=== PATIENT | female | born 1985 | race Caucasian/White ===

== ENCOUNTER 2019-09-11 16:02 | Emergency (ER) | payer MEDICARE, OTHER, SELFPAY ==
[2019-09-11 16:15] VITALS: BP 143/105; PULSE 87; RESP 18; TEMP 37.1; O2SAT 100
--- NOTE | 2019-09-11 16:30 | W.ED.ABDPA2 ---
HPI - Abdominal Pain General: Chief Complaint: Abdominal Pain Stated Complaint: Abd pain Time Seen by Provider: 09/11/19 16:23 Source: patient Mode of arrival: ambulatory Limitations: no limitations History of Present Illness: HPI narrative: Patient comes in today with complaints of lower abdominal pain radiating into her back. Patient reports similar pain about 1 month ago just before which was diagnosed with uterine fibroids at that time. Review of old records noted a KUB that showed no abnormality. And a transvaginal pelvic ultrasound that noted two intramural uterine fibroids with the larger one measuring 3.5 cm. This exam was done on August 18, 2019. Patient comes in today due to increase in pain in which she is unable to manage with tramadol at home. Patient appears well. Patient denies any fever or chills. Patient appears in moderate pain. Review of Systems General: Reports: 10 or more systems reviewed and unremarkable except in HPI and below GI: Reports: abdominal pain (pelvic and back pain) PFS ED PFSH: Statuses (acute, chronic, etc) shown below reflect problem list status as previously entered and may not be historically accurate Social History Smoking and tobacco status: former smoker Physical Exam Const: COMMON NORMALS: no apparent distress and oriented x3 GENERAL APPEARANCE: cooperative HENMT: COMMON NORMALS: normocephalic, external ears normal, EAC's normal, TM's normal bilaterally and external nose normal HEAD & SCALP: normal to inspection and normocephalic FACE & SINUS: normal facial exam NOSE: external nose normal GENERAL EAR: hearing not grossly impaired EXTERNAL EAR: Yes external ears normal EXTERNAL AUDITORY CANAL: EAC's normal TYMPANIC MEMBRANE: TM's normal bilaterally MOUTH: oral and palatal mucosa normal THROAT: posterior oropharynx normal Eye: COMMON NORMALS: PERRL and EOMs intact bilaterally PUPIL: Yes PERRL Neck/C-Spine: COMMON NORMALS: full ROM and no lymphadenopathy Lymph: LYMPHATIC: no lymphedema noted Chest: COMMONS NORMALS: inspection of chest normal and palpation of chest normal Resp: COMMON NORMALS: normal respiratory effort and clear to auscultation bilaterally AUSCULTATION: clear to auscultation bilaterally Cardio: COMMON NORMALS: regular rate and regular rhythm RATE: regular rate RHYTHM: regular rhythm GI: COMMON NORMALS: soft to palpation PALPATION: Yes soft and Yes tender (suprapubic) : COMMON NORMALS: Yes no CVA tenderness BLADDER/KIDNEY EXAM: Yes no CVA tenderness Back/Pelvis: COMMON NORMALS: no CVA tenderness and thoracic and lumbar spine normal to inspection Extremity: COMMON NORMALS: normal to inspection GENERAL: No edema Neuro: COMMON NORMALS: oriented x3, moves all extremities and no focal motor deficits Psych: COMMON NORMALS: mental status grossly normal and cooperative Skin: COMMON NORMALS: no rashes or lesions noted GENERAL SKIN EXAM: no rashes or lesions noted Course ED course: 1652, reviewed with Golden Overton who agree to continued care of patient with my departure. [email or web address] Vital Signs: Vital signs: Vital Signs Temperature 98.7 F 09/11/19 16:15 Pulse Rate 72 09/11/19 18:12 Respiratory Rate 18 09/11/19 18:12 Blood Pressure 118/68 09/11/19 18:12 Pulse Oximetry 98 09/11/19 18:12 MDM - Abdominal Pain Lab Data: Labs: Lab Results 09/11/19 09/11/19 09/11/19 Range/Units 16:32 16:32 17:13 WBC 7.4 (4.0-10.0) 10^3/ uL RBC 4.78 (4.1-5.3) 10^6/u L Hgb 14.3 (11.5-15.3) g/dL Hct 45.2 (37.0-47.0) % MCV 94.6 (81-99) fL MCH 29.9 (28.0-34.0) pg MCHC 31.6 (30.0-36.0) g/dL RDW 12.4 (12.1-15.1) % Plt Count 377 (130-400) 10^3/c mm MPV 9.8 (7.4-10.4) fL Neut % (Auto) 67.9 % Lymph % (Auto) 13.4 % [place] % (Auto) 12.3 % Eos % (Auto) 0.5 % Baso % (Auto) 0.3 % Neut # (Auto) 5.0 (1.8-7.7) 10^3/u L Lymph # (Auto) 1.0 (0.8-4.8) 10^3/u L [place] # (Auto) 0.9 (0.2-0.9) 10^3/u L Eos # (Auto) 0.0 (0.0-0.8) 10^3/u L Baso # (Auto) 0.0 (0.0-0.1) 10^3/u L Nucleated RBC % (a uto) 0 % Nucleated RBCs # 0.0 /100WBC Sodium 136 (136-145) mmol/L Potassium 4.6 (3.5-5.1) mmol/L Chloride 101 (98-107) mmol/L Carbon Dioxide 23 (22-29) mmol/L Anion Gap 16.6 (5-19) BUN 16 (6-20) mg/dL Creatinine 0.8 (0.5-0.9) mg/dL GFR Calculation 82.1 L (90-130) mL/min Glucose 135 H (74-109) mg/dL Calcium 10.5 H (8.6-10.0) mg/Dl Total Bilirubin 0.2 (0.15-1.2) mg/dL AST 24 (0-32) U/L ALT 23 (0-33) U/L Alkaline Phosphata se 191 H (35-105) IU/L Total Protein 7.3 (6.6-8.7) g/dL Albumin 4.5 (3.5-5.2) g/dL Globulin 2.8 (1.3-4.6) g/dL Lipase 18 (13-60) U/L Urine Color Straw (Yellow) Urine Appearance Clear (CLEAR) Urine pH 5 (5-7) Ur Specific Gravit y 1.015 (1.005-1.030) Urine Protein Neg (Negative) Urine Glucose (UA) Norm (Normal) Urine Ketones Negative (Negative) Urine Occult Blood Neg (Negative) Urine Nitrate Negative (Negative) Urine Bilirubin Neg (NEGATIVE) Urine Urobilinogen Norm (Negative) mg/dL Ur Leukocyte Lidia ase Negative (Negative) Urine RBC Rare (0-2) /hpf Urine WBC 0-4 H (0-5) /hpf Ur Squamous Epith Cells 0-4 H (0-5) Urine Bacteria 1+ H (NONE) Urine Mucus Trace Discharge Plan Discharge Patient Disposition: Home, Self-Care Clinical Impression: Fibroid, uterine Qualifiers: Uterine leiomyoma location: intramural Qualified Code(s): D25.1 - Intramural leiomyoma of uterus Condition: Stable Prescriptions: New hydrocodone-acetaminophen 5-325 mg tablet 1 tab PO Q6H PRN (Reason: pain) Qty: 14 RF: 0 Zofran 4 mg tablet 4 mg PO Q8H PRN (Reason: nausea and vomiting) 5 Days Qty: 10 RF: 0 Discharge Orders: Discharge Order (Routine); Ordered 09/11/19 Ordered By: Harvey Overton Referrals: Cristopher Payne Jr, MD [Family Provider] - Discharge Diet: Usual diet Discharge Activity: Increase activity as tolerated Activity Restrictions/Additional Instructions: Follow-up with medical provider as directed. Take medications as prescribed. Return to the ER or your medical provider if condition worsens. Please read and understand discharge instructions. If any questions ask please. Follow-up with primary concerning labs. Week contact from rehabilitation caseworker for appointment with surgeon. Discharge Date/Time: 09/11/19 18:13 Coding Level of Care Code ED Evaluation Engineer for Doris Fwdhruv Exam Problem Focused
[2019-09-11 16:40] VITALS: RESP 18; O2SAT 96
[2019-09-11] MEDS: morphine 4 mg/mL SDV 1 mL IVP (16:40)
[2019-09-11] MEDS: ondansetron 2 mg/ML SDV 2 mL 4 MG IVP (16:41)
[2019-09-11 16:43] LABS: Basophils % 0.3 %; Eosinophils % 0.5 %; Hematocrit 45.2 % (37.0-47.0); Hemoglobin 14.3 g/dL (11.5-15.3); Lymphocytes % 13.4 %; Mean Corpuscular HGB Conc 31.6 g/dL (30.0-36.0); Mean Corpuscular Hemoglobin 29.9 pg (28.0-34.0); Mean Corpuscular Volume 94.6 fL (81-99); Mean Platelet Volume 9.8 fL (7.4-10.4); Monocytes # 0.9 10^3/uL (0.2-0.9); Monocytes % 12.3 %; Neutrophils % 67.9 %; Nucleated Red Blood Cells % 0 %; Platelet Count 377 10^3/cmm (130-400); Red Blood Count 4.78 10^6/uL (4.1-5.3); Red Cell Distribution Width 12.4 % (12.1-15.1); White Blood Count 7.4 10^3/uL (4.0-10.0)
[2019-09-11 17:04] LABS: Alanine Aminotransferase 23 U/L (0-33); Albumin Level 4.5 g/dL (3.5-5.2); Alkaline Phosphatase 191 IU/L (35-105); Anion Gap 16.6 (5-19); Aspartate Amino Transferase 24 U/L (0-32); Blood Urea Nitrogen 16 mg/dL (6-20); Calcium 10.5 mg/Dl (8.6-10.0); Carbon Dioxide 23 mmol/L (22-29); Chloride 101 mmol/L (98-107); Globulin 2.8 g/dL (1.3-4.6); Glomerular Filtration Rate 82.1 mL/min (90-130); Glucose 135 mg/dL (74-109); Lipase 18 U/L (13-60); Potassium 4.6 mmol/L (3.5-5.1); Sodium 136 mmol/L (136-145); Total Bilirubin 0.2 mg/dL (0.15-1.2); Total Protein 7.3 g/dL (6.6-8.7)
[2019-09-11 17:16] LABS: Slide Review Slide Review Perform
[2019-09-11] MEDS: HYDROcodone-acetaminophen 7.5-325 mg Tablet 1 TAB PO (17:43)
[2019-09-11 17:50] LABS: Urine Appearance Clear (CLEAR); Urine Color Straw (Yellow); pH Urine 5 (5-7)
[2019-09-11 17:51] LABS: Bilirubin Urine Neg (NEGATIVE); Blood Urine Neg (Negative); Glucose Urine UA Norm (Normal); Ketones Urine Negative (Negative); Leukocyte Esterase Urine Negative (Negative); Nitrate Urine Negative (Negative); Protein Urine Neg (Negative); Specific Gravity, Urine 1.015 (1.005-1.030); Urobilinogen Urine Norm (Negative)
[2019-09-11 17:53] LABS: Add Urine Culture? No; Bacteria Urine 1+; Mucus Urine TRACE; RBC Urine RARE /hpf (0-2); Squamous Epithelial Cell Urine 0-4 (0-5); WBC Urine 0-4 /hpf (0-5)
[2019-09-11 18:12] VITALS: BP 118/68; PULSE 72; RESP 18; O2SAT 98
--- NOTE | 2019-09-13 10:31 | DCPLANNER ---
manager willow had message to schedule a follow up appointment with [facility]. manager willow called [facility], spoke with Delia, gave clinic patients information. manager willow was told that patients information would be printed and reviewed. Clinic will call behavioral health case manager and patient with appointment information.
--- NOTE | 2019-09-14 11:36 | DCPLANNER ---
Patient has a follow up appointment scheduled for Saturday, September 21, 2019 at 8:[address] Arciniega. Clinic will call patient with appointment information.
--- NOTE | 2019-09-20 12:24 | DCPLANNER ---
Delia from [facility] called senior case manager with appointment information. A follow up appointment is scheduled for Saturday, September 21, 2019 at 7:[address] Arciniega. Clinic called patient with appointment information.
--- NOTE | 2019-09-23 14:28 | DCPLANNER ---
Patient did attend appointment scheduled for 09.21.19 at [facility].
== END 2019-09-11 18:13 | disposition home or self-care (01) ==
PROVIDERS: Emergency Provider Nurse Practitioner Family; Family Provider Family Medicine
DX: D25.1 Intramural leiomyoma of uterus (principal); Z87.891 Personal history of nicotine dependence
CPT/HCPCS: 80053; 81001; 83690; 85025; 96374; 99282; J2270; J2405

== ENCOUNTER 2019-09-13 06:32 | Outpatient (CLI) | payer MEDICARE, OTHER, SELFPAY ==
[2019-09-13 07:12] LABS: Add Urine Microscopic? NO
[2019-09-13 07:48] LABS: Albumin Level 4.9 g/dL (3.5-5.2); Anion Gap 15.1 (5-19); Blood Urea Nitrogen 15 mg/dL (6-20); Calcium 10.8 mg/Dl (8.6-10.0); Carbon Dioxide 26 mmol/L (22-29); Chloride 102 mmol/L (98-107); Glucose 83 mg/dL (74-109); Magnesium 1.9 mg/dL (1.7-2.3); Phosphorus 2.7 mg/dL (2.5-4.5); Potassium 4.1 mmol/L (3.5-5.1); Sodium 139 mmol/L (136-145)
[2019-09-13 07:51] LABS: Bilirubin Urine Neg (NEGATIVE); Blood Urine Neg (Negative); Glucose Urine UA Norm (Normal); Ketones Urine Negative (Negative); Leukocyte Esterase Urine Negative (Negative); Nitrate Urine Negative (Negative); Protein Urine Neg (Negative); Urine Appearance Clear (CLEAR); Urine Color Yellow (Yellow); Urobilinogen Urine Norm (Negative); pH Urine 6 (5-7)
[2019-09-13 08:02] LABS: Basophils # 0.1 10^3/uL (0.0-0.1); Basophils % 0.9 %; Eosinophils # 0.2 10^3/uL (0.0-0.8); Hematocrit 47.9 % (37.0-47.0); Hemoglobin 15.4 g/dL (11.5-15.3); Lymphocytes # 1.9 10^3/uL (0.8-4.8); Mean Corpuscular HGB Conc 32.2 g/dL (30.0-36.0); Mean Corpuscular Volume 90.2 fL (81-99); Monocytes # 0.9 10^3/uL (0.2-0.9); Monocytes % 11.8 %; Neutrophils # 3.9 10^3/uL (1.8-7.7); Neutrophils % 52.7 %; Nucleated Red Blood Cells % 0 %; Platelet Count 455 10^3/cmm (130-400); Positive C 1; Positive M 1; Red Blood Count 5.31 10^6/uL (4.1-5.3); Red Cell Distribution Width 12.4 % (12.1-15.1); White Blood Count 7.5 10^3/uL (4.0-10.0)
[2019-09-13 08:08] LABS: Urine Creatinine 186 mg/dL (28-217); Urine Protein Random 10 mg/dL
[2019-09-13 08:37] LABS: UPRO/UCREAT Ratio 0.05 mg/mg CR
[2019-09-13 08:56] LABS: Slide Review Slide Review Perform
[2019-09-16 16:57] LABS: CMV DNA By PCR <200 IU/mL; CMV DNA, QN PCR <2.30 Log IU/mL; SOURCE WHOLE BLOOD
== END 2019-09-13 06:33 | disposition home or self-care (01) ==
LOC: LAB 06:37
PROVIDERS: Family Provider Family Medicine; Visit Provider Student in an Organized Health Care Education/Training Program
DX: Z48.22 Encounter for aftercare following kidney transplant (principal); Z79.899 Other long term (current) drug therapy; Z94.0 Kidney transplant status
CPT/HCPCS: 36415; 80069; 80197; 81003; 82570; 83735; 84156; 85025; 87799

== ENCOUNTER 2019-09-17 13:38 | Emergency (ER) | payer MEDICARE, OTHER, SELFPAY ==
[2019-09-17 13:39] VITALS: BP 149/103; PULSE 80; RESP 18; TEMP 36.7; O2SAT 100; BMI 22.4
[2019-09-17 14:19] LABS: HCG Qualitative Urine. Negative (Negative)
[2019-09-17 14:52] LABS: Basophils # 0.1 10^3/uL (0.0-0.1); Basophils % 0.6 %; Eosinophils % 0.3 %; Hematocrit 41.8 % (37.0-47.0); Hemoglobin 13.3 g/dL (11.5-15.3); Lymphocytes # 1.1 10^3/uL (0.8-4.8); Lymphocytes % 9.1 %; Mean Corpuscular HGB Conc 31.8 g/dL (30.0-36.0); Mean Corpuscular Hemoglobin 28.7 pg (28.0-34.0); Mean Corpuscular Volume 90.1 fL (81-99); Mean Platelet Volume 9.8 fL (7.4-10.4); Monocytes # 0.7 10^3/uL (0.2-0.9); Neutrophils # 9.2 10^3/uL (1.8-7.7); Neutrophils % 77.3 %; Nucleated Red Blood Cells % 0 %; Platelet Count 401 10^3/cmm (130-400); Red Blood Count 4.64 10^6/uL (4.1-5.3); Red Cell Distribution Width 12.7 % (12.1-15.1); White Blood Count 11.9 10^3/uL (4.0-10.0)
[2019-09-17 15:08] LABS: Alanine Aminotransferase 24 U/L (0-33); Albumin Level 4.7 g/dL (3.5-5.2); Alkaline Phosphatase 166 IU/L (35-105); Anion Gap 18.2 (5-19); Aspartate Amino Transferase 22 U/L (0-32); Blood Urea Nitrogen 21 mg/dL (6-20); Calcium 10.8 mg/dL (8.5-10.5); Carbon Dioxide 24 mmol/L (22-29); Chloride 101 mmol/L (98-107); Globulin 2.8 g/dL (1.3-4.6); Glomerular Filtration Rate 56.9 mL/min (90-130); Glucose 130 mg/dL (74-109); Lipase 17 U/L (13-60); Potassium 5.2 mmol/L (3.5-5.1); Sodium 138 mmol/L (136-145); Total Bilirubin 0.2 mg/dL (0.15-1.2); Total Protein 7.5 g/dL (6.6-8.7)
[2019-09-17 15:30] LABS: Slide Review Slide Review Perform
[2019-09-17 16:07] VITALS: BP 130/89; PULSE 92; RESP 14; O2SAT 98
--- NOTE | 2019-09-17 16:15 | ED_ITS ---
HPI - Abdominal Pain General: Chief Complaint: Abdominal Pain Stated Complaint: abd pain Time Seen by Provider: 09/17/19 16:15 Source: patient Mode of arrival: ambulatory Limitations: no limitations History of Present Illness: HPI narrative: Patient comes in today with complaints of lower abdominal pelvic pain. Patient has a history oh uterine tumors, leiomyomas. Patient appears well. Patient appears in mild to moderate pain. Review of Systems General: Reports: 10 or more systems reviewed and unremarkable except in HPI and below : Reports: pelvic pain PFSH ED PFSH: Statuses (acute, chronic, etc) shown below reflect problem list status as previously entered and may not be historically accurate Social History Smoking and tobacco status: never smoked Physical Exam Const: COMMON NORMALS: no apparent distress and oriented x3 GENERAL APPEARANCE: cooperative HENMT: COMMON NORMALS: normocephalic, external ears normal, EAC's normal, TM's normal bilaterally and external nose normal HEAD & SCALP: normal to inspection and normocephalic FACE & SINUS: normal facial exam NOSE: external nose normal GENERAL EAR: hearing not grossly impaired EXTERNAL EAR: Yes external ears normal EXTERNAL AUDITORY CANAL: EAC's normal TYMPANIC MEMBRANE: TM's normal bilaterally MOUTH: oral and palatal mucosa normal THROAT: posterior oropharynx normal Eye: COMMON NORMALS: PERRL and EOMs intact bilaterally PUPIL: Yes PERRL Neck/C-Spine: COMMON NORMALS: full ROM and no lymphadenopathy Lymph: LYMPHATIC: no lymphedema noted Chest: COMMONS NORMALS: inspection of chest normal and palpation of chest normal Resp: COMMON NORMALS: normal respiratory effort and clear to auscultation bilaterally AUSCULTATION: clear to auscultation bilaterally Cardio: COMMON NORMALS: regular rate and regular rhythm RATE: regular rate RHYTHM: regular rhythm GI: COMMON NORMALS: normal to inspection, nondistended, normoactive bowel sounds and non-tender : COMMON NORMALS: Yes no CVA tenderness BLADDER/KIDNEY EXAM: Yes no CVA tenderness Back/Pelvis: COMMON NORMALS: no CVA tenderness and thoracic and lumbar spine normal to inspection Extremity: COMMON NORMALS: normal to inspection GENERAL: No edema Neuro: COMMON NORMALS: oriented x3, moves all extremities and no focal motor deficits Psych: COMMON NORMALS: mental status grossly normal and cooperative Skin: COMMON NORMALS: no rashes or lesions noted GENERAL SKIN EXAM: no rashes or lesions noted Course Vital Signs: Vital signs: Vital Signs Temperature 98.0 F 09/17/19 13:39 Pulse Rate 92 09/17/19 16:07 Respiratory Rate 14 09/17/19 16:07 Blood Pressure 130/89 09/17/19 16:07 Pulse Oximetry 98 09/17/19 16:07 MDM - Abdominal Pain MDM Narrative: Medical decision making narrative: Patient comes in with pelvic pain. Patient has a history of leiomyomas. Exam was normal. Vital signs were stable. Differential diagnosis included , UTI, malingering, chronic pelvic pain. Reviewed with patient with recommendations for continuation of medication for pain. Patient is to see TECHNOLOGY ADOPTION MANAGER on Friday the . Patient is to maintain and keep that appointment. She agrees with the plan. Lab Data: Labs: Lab Results 09/17/19 09/17/19 09/17/19 Range/Units 14:03 14:38 14:38 WBC 11.9 H (4.0-10.0) 10^3/ uL RBC 4.64 (4.1-5.3) 10^6/u L Hgb 13.3 (11.5-15.3) g/dL Hct 41.8 (37.0-47.0) % MCV 90.1 (81-99) fL MCH 28.7 (28.0-34.0) pg MCHC 31.8 (30.0-36.0) g/dL RDW 12.7 (12.1-15.1) % Plt Count 401 H (130-400) 10^3/c mm MPV 9.8 (7.4-10.4) fL Neut % (Auto) 77.3 % Lymph % (Auto) 9.1 % [place] % (Auto) 6.0 % Eos % (Auto) 0.3 % Baso % (Auto) 0.6 % Neut # (Auto) 9.2 H (1.8-7.7) 10^3/u L Lymph # (Auto) 1.1 (0.8-4.8) 10^3/u L [place] # (Auto) 0.7 (0.2-0.9) 10^3/u L Eos # (Auto) 0.0 (0.0-0.8) 10^3/u L Baso # (Auto) 0.1 (0.0-0.1) 10^3/u L Nucleated RBC % (a uto) 0 % Nucleated RBCs # 0.0 /100WBC Sodium 138 (136-145) mmol/L Potassium 5.2 H (3.5-5.1) mmol/L Chloride 101 (98-107) mmol/L Carbon Dioxide 24 (22-29) mmol/L Anion Gap 18.2 (5-19) BUN 21 H (6-20) mg/dL Creatinine 1.1 H (0.5-0.9) mg/dL GFR Calculation 56.9 L (90-130) mL/min Glucose 130 H (74-109) mg/dL Calcium 10.8 H (8.5-10.5) mg/dL Total Bilirubin 0.2 (0.15-1.2) mg/dL AST 22 (0-32) U/L ALT 24 (0-33) U/L Alkaline Phosphata se 166 H (35-105) IU/L Total Protein 7.5 (6.6-8.7) g/dL Albumin 4.7 (3.5-5.2) g/dL Globulin 2.8 (1.3-4.6) g/dL Lipase 17 (13-60) U/L HCG, Qual Negative (Negative) Discharge Plan Discharge Patient Disposition: Home, Self-Care Clinical Impression: Pelvic pain in female Fibroid, uterine Qualifiers: Uterine leiomyoma location: unspecified location Qualified Code(s): D25.9 - Leiomyoma of uterus, unspecified Condition: Stable Prescriptions: New hydrocodone-acetaminophen 5-325 mg tablet 1 tab PO Q6H PRN (Reason: pain) Qty: 16 RF: 0 No Action sulfamethoxazole-trimethoprim 400-80 mg tablet 1 tab PO DAILY RF: 0 metoprolol succinate 200 mg tablet extended release 24 hr 200 mg PO DAILY RF: 0 prednisone 50 mg tablet 5 mg PO DAILY RF: 0 Phospha 250 Neutral 250 mg tablet 2 tab PO BID RF: 0 tacrolimus 1 mg capsule 1.5 mg PO BID RF: 0 loratadine 10 mg tablet 10 mg PO DAILY RF: 0 mycophenolate sodium 360 mg tablet,delayed release (DR/EC) 360 mg PO BID RF: 0 Multi For Her 18 mg iron-600 mcg-40 mcg Capsule 1 tab-cap PO DAILY RF: 0 Discharge Orders: Discharge Order (Routine); Ordered 09/17/19 Ordered By: Alexander Espinosa Referrals: Cristopher Payne Jr, MD [Family Provider] - Discharge Diet: Usual diet Discharge Activity: Resume usual activity Activity Restrictions/Additional Instructions: Drink plenty of water with medications Activity as tolerated Healthy diet Follow-up with primary care in one week Keep appointment for further evaluation with OB-COLOR CARD MAKER Coding Level of Care Code ED Application Infrastructure Engineer for Chg Fwd Exam Problem Focused
[2019-09-17 17:10] VITALS: TEMP 36.8; O2SAT 99
--- NOTE | 2019-09-20 11:03 | DCPLANNER ---
personal fitness manager had message to schedule a follow up appointment for patient with [facility]. personal fitness manager called the clinic, spoke with Delia, gave clinic patients information. personal fitness manager was told that patients information would be printed and reviewed. Clinic will call case sealer and patient with appointment information.
--- NOTE | 2019-09-20 12:25 | DCPLANNER ---
Delia from [facility] called vocational case manager with appointment information. A follow up appointment is scheduled for Saturday, September 21, 2019 at 7:[address] Arciniega. Clinic called patient with appointment information.
--- NOTE | 2019-09-23 14:29 | DCPLANNER ---
Patient did attend appointment scheduled for 09.21.19 with [facility].
== END 2019-09-17 16:20 | disposition home or self-care (01) ==
PROVIDERS: Emergency Medicine; Emergency Provider Nurse Practitioner Family; Family Provider Family Medicine
DX: D25.9 Leiomyoma of uterus, unspecified (principal)
CPT/HCPCS: 36415; 80053; 81025; 83690; 85025; 99282

== ENCOUNTER → 2019-09-21 11:40 | Outpatient (BNVA) | payer MEDICARE, OTHER, SELFPAY | PROVIDERS: Family Provider Family Medicine; Visit Provider Obstetrics & Gynecology | DX: N93.9 Abnormal uterine and vaginal bleeding, unspecified (principal) | CPT/HCPCS: 83001; 84146; 84443; 84702 ==

== ENCOUNTER 2019-09-24 15:29 | Outpatient (CLI) | payer MEDICARE, OTHER, SELFPAY ==
--- NOTE | 2019-09-24 15:31 | MM_ITS ---
WS: [id number] BILATERAL DIGITAL SCREENING MAMMOGRAPHY WITH CAD CLINICAL INFORMATION: SCREENING HISTORY: Screening mammogram. No current complaints. COMPARISON: March 31, 2018. Outside CT September 09, 2019 TECHNIQUE: Bilateral CC and MLO views. FINDINGS: The breasts are composed of heterogeneous fibroglandular density tissue, which can limit the detectio n of small underlying mass lesions. CT chest reviewed. 7 mm solid nodule posterior depth right breast upper outer right breast in the 12:00 position. Recommend further evaluation with spot compression v iews and ultrasound. Slightly spiculated asymmetric density near the 12:00 position on the mammogram measuring 7 mm may correspond to the CT lesion. MM/[place] [id number] IMPRESSION: BI-RADS: 0-Incomplete: Need additional imaging evaluation FOLLOW UP: Need Additional Imaging
== END 2019-09-24 15:30 | disposition home or self-care (01) ==
LOC: RADSHAW 15:29
PROVIDERS: Family Provider Family Medicine; PCP Nurse Practitioner Family; Visit Provider Nurse Practitioner Family
DX: Z12.31 Encounter for screening mammogram for malignant neoplasm of breast (principal)
CPT/HCPCS: 77067

== ENCOUNTER → 2019-09-28 08:05 | Outpatient (BNVA) | payer MEDICARE, OTHER, SELFPAY | PROVIDERS: Family Provider Family Medicine; PCP Nurse Practitioner Family; Visit Provider Obstetrics & Gynecology | DX: R79.89 Other specified abnormal findings of blood chemistry (principal) | CPT/HCPCS: 84146 ==

== ENCOUNTER 2019-10-18 07:11 | Outpatient (CLI) | payer MEDICARE, OTHER, SELFPAY ==
[2019-10-18 07:31] LABS: Add Urine Microscopic? NO
[2019-10-18 07:44] LABS: Basophils # 0.1 10^3/uL (0.0-0.1); Basophils % 0.6 %; Eosinophils # 0.1 10^3/uL (0.0-0.8); Eosinophils % 1.6 %; Hematocrit 42.7 % (37.0-47.0); Hemoglobin 13.5 g/dL (11.5-15.3); Lymphocytes # 1.5 10^3/uL (0.8-4.8); Lymphocytes % 18.2 %; Mean Corpuscular HGB Conc 31.6 g/dL (30.0-36.0); Mean Corpuscular Hemoglobin 28.7 pg (28.0-34.0); Mean Corpuscular Volume 90.7 fL (81-99); Monocytes # 0.7 10^3/uL (0.2-0.9); Monocytes % 9.1 %; Neutrophils # 5.7 10^3/uL (1.8-7.7); Neutrophils % 69.4 %; Nucleated Red Blood Cells % 0 %; Platelet Count 361 10^3/cmm (130-400); Red Blood Count 4.71 10^6/uL (4.1-5.3); Red Cell Distribution Width 12.6 % (12.1-15.1); White Blood Count 8.1 10^3/uL (4.0-10.0)
[2019-10-18 07:47] LABS: Bilirubin Urine Neg (NEGATIVE); Blood Urine Neg (Negative); Glucose Urine UA Norm (Normal); Ketones Urine Negative (Negative); Leukocyte Esterase Urine Negative (Negative); Nitrate Urine Negative (Negative); Protein Urine Neg (Negative); Urine Appearance Clear (CLEAR); Urine Color Yellow (Yellow); Urobilinogen Urine Norm (Negative); pH Urine 6.5 (5-7)
[2019-10-18 08:04] LABS: Albumin Level 4.7 g/dL (3.5-5.2); Anion Gap 17.6 (5-19); Blood Urea Nitrogen 20 mg/dL (6-20); Carbon Dioxide 26 mmol/L (22-29); Chloride 105 mmol/L (98-107); Glucose 101 mg/dL (65-115); Magnesium 1.8 mg/dL (1.7-2.3); Phosphorus 2.3 mg/dL (2.5-4.5); Potassium 4.6 mmol/L (3.5-5.1); Sodium 144 mmol/L (136-145)
[2019-10-18 08:40] LABS: Urine Creatinine 138 mg/dL (28-217); Urine Protein Random 6 mg/dL
[2019-10-18 08:54] LABS: UPRO/UCREAT Ratio 0.04 mg/mg CR
[2019-10-20 08:46] LABS: BK VIRUS DNA, QN PCR NO DNA DETECTED copies/mL; SOURCE SERUM
[2019-10-20 20:31] LABS: Urine BK Virus DNA Quant NO DNA DETECTED copies/mL
[2019-10-23 04:12] LABS: CMV DNA By PCR <200 IU/mL; CMV DNA, QN PCR <2.30 Log IU/mL; SOURCE WHOLE BLOOD
== END 2019-10-18 07:12 | disposition home or self-care (01) ==
PROVIDERS: Family Provider Family Medicine; PCP Nurse Practitioner Family; Visit Provider Internal Medicine Nephrology
DX: Z48.22 Encounter for aftercare following kidney transplant (principal); Z79.899 Other long term (current) drug therapy; Z94.0 Kidney transplant status
CPT/HCPCS: 80069; 80197; 81003; 82570; 83735; 84156; 85025; 87798; 87799

== ENCOUNTER 2019-10-25 14:48 | Outpatient (CLI) | payer MEDICARE, OTHER, SELFPAY ==
--- NOTE | 2019-10-25 14:58 | MM_ITS ---
WS: [id number] ADDITIONAL VIEWS RIGHT BREAST Ultrasound RIGHT breast, limited HISTORY: ABNORMAL MAMMOGRAM COMPARISON: 09/24/2019, 03/31/[address] 09/09/2019 Compression views right CC and MLO projection. True ML also submitted. No distortion or mass is identified on the additional views. Normal fibroglandular tissue. There are some benign-appearing lymph nodes along the posterior chest wall. RIGHT breast ultrasound, limited. Ultrasound is directed to the posterior superior RIGHT breast along the chest wall. No suspicious mas ses or nodules are identified. MM/MM spot [facility] [place] [id number] IMPRESSION: BI-RADS: 2-Benign FOLLOW-UP: Age 40 7 mm nodule along the posterior superior chest wall is not identified on additi onal views or ultrasound.
== END 2019-10-25 14:49 | disposition home or self-care (01) ==
LOC: RADSHAW 14:48
PROVIDERS: Family Provider Family Medicine; PCP Nurse Practitioner Family; Visit Provider Nurse Practitioner Family
DX: R92.8 Other abnormal and inconclusive findings on diagnostic imaging of breast (principal)
CPT/HCPCS: 76642; 77065

== ENCOUNTER 2019-11-15 07:33 | Outpatient (CLI) | payer MEDICARE, OTHER, SELFPAY ==
[2019-11-15 08:11] LABS: Add Urine Microscopic? NO
[2019-11-15 08:21] LABS: Basophils # 0.1 10^3/uL (0.0-0.1); Basophils % 0.6 %; Eosinophils # 0.2 10^3/uL (0.0-0.8); Eosinophils % 1.7 %; Hematocrit 44.4 % (37.0-47.0); Lymphocytes # 1.6 10^3/uL (0.8-4.8); Lymphocytes % 17.5 %; Mean Corpuscular HGB Conc 31.5 g/dL (30.0-36.0); Mean Corpuscular Volume 92.1 fL (81-99); Mean Platelet Volume 10.2 fL (7.4-10.4); Monocytes # 0.8 10^3/uL (0.2-0.9); Monocytes % 9.3 %; Neutrophils # 6.1 10^3/uL (1.8-7.7); Neutrophils % 69.1 %; Nucleated Red Blood Cells % 0 %; Platelet Count 350 10^3/cmm (130-400); Red Blood Count 4.82 10^6/uL (4.1-5.3); Red Cell Distribution Width 12.6 % (12.1-15.1); White Blood Count 8.9 10^3/uL (4.0-10.0)
[2019-11-15 08:25] LABS: Bilirubin Urine Neg (NEGATIVE); Blood Urine Neg (Negative); Glucose Urine UA Norm (Normal); Ketones Urine Negative (Negative); Leukocyte Esterase Urine Negative (Negative); Nitrate Urine Negative (Negative); Protein Urine Neg (Negative); Urine Appearance Clear (CLEAR); Urine Color Yellow (Yellow); Urobilinogen Urine Norm (Negative); pH Urine 6.5 (5-7)
[2019-11-15 08:32] LABS: Albumin Level 4.5 g/dL (3.5-5.2); Anion Gap 9.6 (5-19); Blood Urea Nitrogen 13 mg/dL (6-20); Calcium 10.9 mg/dL (8.5-10.5); Carbon Dioxide 31 mmol/L (22-29); Chloride 103 mmol/L (98-107); Glomerular Filtration Rate 71.7 mL/min (90-130); Glucose 101 mg/dL (65-115); Magnesium 1.8 mg/dL (1.7-2.3); Phosphorus 2.3 mg/dL (2.5-4.5); Potassium 4.6 mmol/L (3.5-5.1); Sodium 139 mmol/L (136-145)
[2019-11-15 08:40] LABS: Urine Creatinine 69 mg/dL (28-217); Urine Protein Random 4 mg/dL
[2019-11-15 09:23] LABS: UPRO/UCREAT Ratio 0.06 mg/mg CR
[2019-11-20 02:40] LABS: BK VIRUS DNA, QN PCR NO DNA DETECTED copies/mL; SOURCE PLASMA
[2019-11-20 19:05] LABS: CMV DNA By PCR <200 IU/mL; CMV DNA, QN PCR <2.30 Log IU/mL; SOURCE BLOOD
[2019-11-20 22:16] LABS: Urine BK Virus DNA Quant NO DNA DETECTED copies/mL
== END 2019-11-15 07:34 | disposition home or self-care (01) ==
LOC: LAB 07:36
PROVIDERS: Family Provider Family Medicine; PCP Nurse Practitioner Family; Visit Provider Internal Medicine Nephrology
DX: Z94.0 Kidney transplant status (principal); Z79.899 Other long term (current) drug therapy
CPT/HCPCS: 36415; 80069; 80197; 81003; 82570; 83735; 84156; 85025; 87496; 87798; 87799

== ENCOUNTER 2019-12-13 07:15 | Outpatient (RCR) | payer MEDICARE, OTHER, SELFPAY ==
[2019-11-29 07:49] LABS: Add Urine Microscopic? NO
[2019-11-29 07:55] LABS: Basophils # 0.1 10^3/uL (0.0-0.1); Basophils % 0.5 %; Eosinophils # 0.2 10^3/uL (0.0-0.8); Eosinophils % 1.5 %; Hematocrit 41.7 % (37.0-47.0); Hemoglobin 13.1 g/dL (11.5-15.3); Lymphocytes # 1.3 10^3/uL (0.8-4.8); Lymphocytes % 13.6 %; Mean Corpuscular HGB Conc 31.4 g/dL (30.0-36.0); Mean Corpuscular Hemoglobin 29.1 pg (28.0-34.0); Mean Corpuscular Volume 92.7 fL (81-99); Mean Platelet Volume 10.2 fL (7.4-10.4); Monocytes # 0.8 10^3/uL (0.2-0.9); Monocytes % 8.5 %; Neutrophils # 7.2 10^3/uL (1.8-7.7); Neutrophils % 72.4 %; Nucleated Red Blood Cells % 0 %; Platelet Count 347 10^3/cmm (130-400); Red Cell Distribution Width 12.7 % (12.1-15.1); White Blood Count 9.9 10^3/uL (4.0-10.0)
[2019-11-29 08:04] LABS: Albumin Level 4.3 g/dL (3.5-5.2); Anion Gap 15.1 (5-19); Blood Urea Nitrogen 14 mg/dL (6-20); Calcium 10.2 mg/dL (8.5-10.5); Carbon Dioxide 25 mmol/L (22-29); Chloride 104 mmol/L (98-107); Glomerular Filtration Rate 71.7 mL/min (90-130); Glucose 91 mg/dL (65-115); Magnesium 1.7 mg/dL (1.7-2.3); Phosphorus 2.6 mg/dL (2.5-4.5); Potassium 4.1 mmol/L (3.5-5.1); Sodium 140 mmol/L (136-145)
[2019-11-29 08:08] LABS: Bilirubin Urine Neg (NEGATIVE); Blood Urine Neg (Negative); Glucose Urine UA Norm (Normal); Ketones Urine Negative (Negative); Leukocyte Esterase Urine Negative (Negative); Nitrate Urine Negative (Negative); Protein Urine Neg (Negative); Urine Appearance Clear (CLEAR); Urine Color Yellow (Yellow); Urobilinogen Urine Norm (Negative); pH Urine 6.5 (5-7)
[2019-11-29 08:16] LABS: Urine Creatinine 54 mg/dL (28-217); Urine Protein Random 4 mg/dL
[2019-11-29 08:25] LABS: UPRO/UCREAT Ratio 0.07 mg/mg CR
[2019-12-02 00:47] LABS: CMV DNA By PCR <200 IU/mL; CMV DNA, QN PCR <2.30 Log IU/mL; SOURCE NOT GIVEN
[2019-12-02 17:39] LABS: Urine BK Virus DNA Quant NO DNA DETECTED copies/mL
[2019-12-03 01:31] LABS: BK VIRUS DNA, QN PCR NO DNA DETECTED copies/mL; SOURCE PLASMA
[2019-12-13 07:38] LABS: Hematocrit 42.1 % (37.0-47.0); Hemoglobin 13.1 g/dL (11.5-15.3); Mean Corpuscular HGB Conc 31.1 g/dL (30.0-36.0); Mean Corpuscular Hemoglobin 28.9 pg (28.0-34.0); Mean Corpuscular Volume 92.9 fL (81-99); Platelet Count 322 10^3/cmm (130-400); Red Blood Count 4.53 10^6/uL (4.1-5.3); White Blood Count 7.6 10^3/uL (4.0-10.0)
[2019-12-13 08:04] LABS: Add Urine Microscopic? YES; Albumin Level 4.4 g/dL (3.5-5.2); Anion Gap 13.5 (5-19); Bilirubin Urine Neg (NEGATIVE); Blood Urea Nitrogen 14 mg/dL (6-20); Blood Urine 2+ (Negative); Calcium 10.4 mg/dL (8.5-10.5); Carbon Dioxide 27 mmol/L (22-29); Chloride 105 mmol/L (98-107); Glomerular Filtration Rate 63.5 mL/min (90-130); Glucose 94 mg/dL (65-115); Glucose Urine UA Norm (Normal); Ketones Urine Negative (Negative); Leukocyte Esterase Urine Negative (Negative); Magnesium 1.7 mg/dL (1.7-2.3); Nitrate Urine Negative (Negative); Phosphorus 2.6 mg/dL (2.5-4.5); Potassium 4.5 mmol/L (3.5-5.1); Protein Urine Neg (Negative); Sodium 141 mmol/L (136-145); Urine Appearance Clear (CLEAR); Urine Color Yellow (Yellow); Urobilinogen Urine Norm (Negative)
[2019-12-13 08:06] LABS: Add Urine Culture? No; Bacteria Urine TRACE; RBC Urine RARE /hpf (0-2); Renal Epithelial Cells Urine N /hpf
[2019-12-13 08:20] LABS: Urine Creatinine 135 mg/dL (28-217); Urine Protein Random 7 mg/dL
[2019-12-13 08:27] LABS: Absolute Eosinophils 0.2 10^3/cmm (0.0-0.7); Absolute Segmented Neutrophil 4.9 10/cmm (1.6-7.1); Band Neutrophils Absolute 0.3 10^3/cmm (0.0-1.2); Basophils Absolute 0.1 10^3/cmm (0.0-0.2); Eosinophils 3 %; Lymphocytes 13 %; Monocytes Absolute 1.1 10^3/cmm (0.1-0.6); Segmented Neutrophils 65 %; Total Cells Counted 100 (0-100)
[2019-12-13 08:28] LABS: Platelet Estimate Normal (Normal)
[2019-12-13 08:29] LABS: UPRO/UCREAT Ratio 0.05 mg/mg CR
== END 2019-12-23 23:59 | disposition home or self-care (01) ==
LOC: LAB 07:15
PROVIDERS: Family Provider Family Medicine; PCP Nurse Practitioner Family; Visit Provider Internal Medicine
DX: Z48.22 Encounter for aftercare following kidney transplant (principal); Z79.899 Other long term (current) drug therapy; Z94.0 Kidney transplant status
CPT/HCPCS: 36415; 80069; 80197; 81001; 81003; 82570; 83735; 84156; 85007; 85025; 85027; 87496; 87798; 87799

== ENCOUNTER 2019-12-27 06:55 | Outpatient (CLI) | payer MEDICARE, OTHER, SELFPAY ==
[2019-12-27 07:03] LABS: Add Urine Microscopic? NO
[2019-12-27 07:16] LABS: Hemoglobin 13.7 g/dL (11.5-15.3); Mean Corpuscular HGB Conc 31.1 g/dL (30.0-36.0); Mean Corpuscular Hemoglobin 28.8 pg (28.0-34.0); Mean Corpuscular Volume 92.6 fL (81-99); Platelet Count 322 10^3/cmm (130-400); Red Blood Count 4.75 10^6/uL (4.1-5.3); Red Cell Distribution Width 12.7 % (12.1-15.1); White Blood Count 10.5 10^3/uL (4.0-10.0)
[2019-12-27 07:46] LABS: Blood Urine Neg (Negative); Glucose Urine UA Norm (Normal); Ketones Urine Negative (Negative); Protein Urine Neg (Negative); Specific Gravity, Urine 1.015 (1.005-1.030); Urine Appearance Clear (CLEAR); Urine Color Straw (Yellow); pH Urine 6.5 (5-7)
[2019-12-27 07:47] LABS: Bilirubin Urine Neg (NEGATIVE); Leukocyte Esterase Urine Negative (Negative); Nitrate Urine Negative (Negative); Urobilinogen Urine Norm (Negative)
[2019-12-27 07:53] LABS: Albumin Level 4.8 g/dL (3.5-5.2); Anion Gap 15.2 (5-19); Blood Urea Nitrogen 17 mg/dL (6-20); Calcium 10.9 mg/dL (8.5-10.5); Carbon Dioxide 27 mmol/L (22-29); Chloride 102 mmol/L (98-107); Glomerular Filtration Rate 82.1 mL/min (90-130); Glucose 88 mg/dL (65-115); Magnesium 1.8 mg/dL (1.7-2.3); Phosphorus 2.9 mg/dL (2.5-4.5); Potassium 4.2 mmol/L (3.5-5.1); Sodium 140 mmol/L (136-145)
[2019-12-27 08:04] LABS: Absolute Eosinophils 0.1 10^3/cmm (0.0-0.7); Absolute Segmented Neutrophil 7.3 10/cmm (1.6-7.1); Band Neutrophils Absolute 0.1 10^3/cmm (0.0-1.2); Eosinophils 1 %; Lymphocytes 19 %; Monocytes Absolute 0.8 10^3/cmm (0.1-0.6); Platelet Estimate Normal (Normal); Segmented Neutrophils 70 %; Total Cells Counted 100 (0-100)
[2019-12-27 08:12] LABS: Urine Creatinine 64 mg/dL (28-217); Urine Protein Random 4 mg/dL
[2019-12-27 08:13] LABS: UPRO/UCREAT Ratio 0.06 mg/mg CR
== END 2019-12-27 06:56 | disposition home or self-care (01) ==
PROVIDERS: Family Provider Family Medicine; PCP Nurse Practitioner Family; Visit Provider Nurse Practitioner Family
DX: Z48.22 Encounter for aftercare following kidney transplant (principal); Z79.899 Other long term (current) drug therapy
CPT/HCPCS: 80069; 81003; 82570; 83735; 84156; 85007; 85027

== ENCOUNTER 2021-05-30 12:28 | Outpatient (CLI) | payer OTHER, SELFPAY ==
[2021-05-30 12:40] VITALS: BP 121/80; PULSE 91; RESP 18; TEMP 36.8; O2SAT 99
[2021-05-30 13:37] VITALS: BP 122/83; PULSE 84; RESP 18; O2SAT 99
[2021-05-30 14:40] VITALS: BP 131/84; PULSE 80; RESP 18; TEMP 36.4; O2SAT 99
== END 2021-05-30 12:29 | disposition home or self-care (01) ==
LOC: OPS 12:30
PROVIDERS: PCP Family Medicine; Visit Provider Nurse Practitioner Family
DX: U07.1 COVID-19 (principal)
CPT/HCPCS: 96365

== ENCOUNTER 2023-06-04 11:00 | Emergency (ER) | payer OTHER, MEDICARE, SELFPAY ==
[2023-06-04 11:37] VITALS: BP 126/83; PULSE 108; RESP 20; TEMP 37.1; O2SAT 99; BMI 26.4
[2023-06-04 11:51] VITALS: BP 132/86; PULSE 100; RESP 16; O2SAT 97
--- NOTE | 2023-06-04 12:06 | ED_ITS ---
HPI - Nausea/Vomiting/Diarrhea General: Chief complaint: Nausea/Vomiting/Diarrhea Stated complaint: FNVD Time Seen by Provider: 06/04/23 11:49 Source: patient Mode of arrival: ambulatory History of Present Illness: 37-year-old female presents emergency room with complaint of nausea vomiting and diarrhea, initially had some abdominal pain associated with that has resolved.. She had nausea and vomiting that began last night some fever she went to see the doctor this morning and temp of 1012. She had some diarrhea initially and overnight but that has improved now. She did note some pretty good relief of the nausea with the Zofran that she received. She did not have hematochezia melena hematemesis cough cramps no dysuria urgency or frequency. She does have a history of renal cell cancer had bilateral nephrectomies and a renal transplant several years ago in [place]. In addition to the nephrectomies and renal transplant she had an appendectomy and previous sections. Transplant kidney is in the right lower quadrant. MD elicited complaint: nausea and vomiting Onset (ago): hour(s) Description of vomiting: food contents and watery Associated nausea: Yes Location of pain: Diffuse Radiation: diffuse Pain consistency: now resolved Quality: cramping Exacerbating factors: none Relieving factors: none Associated symtoms: Reports anorexia, malaise, nausea and weakness; Denies altered mental status, anxiety, bloating, change in vision, chest pain, cough, diaphoresis, decreased urine output, dizziness, dysuria, epistaxis, fatigue, fecal incontinence, fevers/chills, headache(s), myalgias, numbness, palpitations, rash, short of breath, syncope, tenesmus or tinnitus Review of Systems Const: Reports: malaise; Denies: fever(s), chills, fatigue or diaphoresis Eyes: Denies: change in vision ENMT: Denies: tinnitus or epistaxis Card: Denies: chest pain, palpitations or syncope Resp: Denies: dyspnea GI: Reports: abdominal pain, nausea, vomiting and diarrhea; Denies: bloating or fecal incontinence : Denies: flank pain, dysuria, urinary frequency or urinary urgency Musc: Denies: neck pain or back pain Skin/Breast: Denies: rash Neuro: Denies: headache(s) or dizziness Psych: Denies: anxiety PFSH ED PFSH: Medical History (Updated 06/04/23 @ 15:21 by Daniel Becker DO) Congestive heart failure Hyperparathyroidism Hypertension 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 Mild tricuspid regurgitation S/p nephrectomy 12/01/1987- left kidney, s/p liver biopsy - right kidney Scoliosis 12/05/1994 Status post peritoneal dialysis Torticollis Vitamin D deficiency 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 Surgical History (Updated 06/04/23 @ 12:09 by Daniel Becker DO) H/O: hysterectomy 01/25/2020- [place] History of biopsy of bladder benign S/P appendectomy 05/12/2017 S/P arthroscopy of right knee 07/2007 S/P breast biopsy 01/10/2014- left S/P kidney transplant 12/12/2018- right kidney S/P parathyroidectomy 07/2017- 3.5 removed S/P tonsillectomy 07/2009 Status post biopsy of kidney 03/05/2016- right kidney 04/14/2013-right Family History Grandfather Stroke maternal Heart disease maternal Prostate cancer paternal Hypertension paternal Hyperlipidemia paternal Grandmother Hyperlipidemia maternal Hypertension maternal Diabetes maternal Dementia maternal Osteoporosis paternal Social History (Updated 09/18/20 @ 15:45 by Cordelia Park RN) Smoking and tobacco/nicotine status: former use of tobacco/nicotine Quit status (tobacco/nicotine): has quit using Year quit tobacco: 2007 Alcohol intake: former Substance/Drug Use: never Physical Exam Const: COMMON NORMALS: no acute distress EXAM LIMITATIONS: no altered men martina status GENERAL APPEARANCE: cooperative and comfortable ORIENTATION/CONSCIOUSNESS: Yes awake, Yes oriented to person, Yes oriented to place and Yes oriented to time HENMT: COMMON NORMALS: normocephalic, atraumatic and hearing grossly normal bilaterally HEAD & SCALP: normocephalic and atraumatic Resp: COMMON NORMALS: normal respiratory effort, No retractions, No use of accessory muscles and clear to auscultation bilaterally AUSCULTATION: clear to auscultation bilaterally Cardio: COMMON NORMALS: regular rate, regular rhythm and No murmurs present (Cardio) RATE: regular rate RHYTHM: regular rhythm GI: COMMON NORMALS: Soft to palpation and No hepatosplenomegaly present AUSCULTATION: Yes normoactive bowel sounds PALPATION: Yes Soft to palpation, No Tenderness to palpation present (GI), No Guarding due to palpation present (GI) and Yes No hepatosplenomegaly present Extremity: COMMON NORMALS: normal to inspection, capillary refill normal, no clubbing, cyanosis or edema, no calf tenderness and no pedal edema Neuro: SENSORIUM/ORIENTATION: Yes oriented to person, Yes oriented to place and Yes oriented to time Skin: COMMON NORMALS: no rashes or lesions noted GENERAL SKIN EXAM: no rashes or lesions noted Course Vital Signs: Vital signs: Vital Signs Temperature 99.5 F 06/04/23 16:00 Pulse Rate 117 H 06/04/23 16:00 Respiratory Rate 16 06/04/23 11:51 Blood Pressure 125/81 06/04/23 16:00 Pulse Oximetry 97 06/04/23 16:00 Oxygen Delivery Me thod Room Air 06/04/23 16:00 MDM - Nausea/Vomiting/Diarrhea Medical Decision Making Mild UTI. Patient's symptoms are predominantly gastric. CT does not show any acute pathologic findings. Discharge home clear liquid diet antiemetics. Given ceftriaxone here in the emergency room start Macrobid tomorrow cultures done return if has further problems or worsening of symptoms. Medical Records I reviewed the patient's medical records. Lab Data I reviewed the patient's lab results. 06/04/23 12:04 06/04/23 12:04 Laboratory Results WBC 16.30 10^3/uL (3.29-11.43) H 06/04/23 12:04 RBC 4.95 10^6/uL (3.85-5.65) 06/04/23 12:04 Hgb 14.60 g/dL (11.27-16.99) 06/04/23 12:04 Hct 44.2 % (36-47) 06/04/23 12:04 MCV 89.3 fl (85-98) 06/04/23 12:04 MCH 29.5 pg (27-33) 06/04/23 12:04 MCHC 33.0 g/dL (30-55) 06/04/23 12:04 RDW 12.6 % (12.1-15.1) 06/04/23 12:04 Plt Count 267 10^3/cmm (157-399) 06/04/23 12:04 MPV 9.8 fL (7.4-10.4) 06/04/23 12:04 Neut % (Auto) 85.8 % 06/04/23 12:04 Lymph % (Auto) 3.7 % 06/04/23 12:04 Lamb % (Auto) 8.7 % 06/04/23 12:04 Eos % (Auto) 0.7 % 06/04/23 12:04 Baso % (Auto) 0.3 % 06/04/23 12:04 Neut # (Auto) 13.99 10^3/uL (1.8-7.7) H 06/04/23 12:04 Lymph # (Auto) 0.6 10^3/uL (0.8-4.8) L 06/04/23 12:04 Lamb # (Auto) 1.4 10^3/uL (0.2-0.9) H 06/04/23 12:04 Eos # (Auto) 0.1 10^3/uL (0.0-0.8) 06/04/23 12:04 Baso # (Auto) 0.1 10^3/uL (0.0-0.1) 06/04/23 12:04 Nucleated RBC % (auto) 0 % 06/04/23 12:04 Nucleated RBCs # 0.0 /100WBC 06/04/23 12:04 Sodium 132 mmol/L (136-145) L 06/04/23 12:04 Potassium 4.1 mmol/L (3.5-5.1) 06/04/23 12:04 Chloride 98 mmol/L (98-107) 06/04/23 12:04 Carbon Dioxide 22 mmol/L (22-29) 06/04/23 12:04 Anion Gap 16.1 (5-19) 06/04/23 12:04 BUN 13 mg/dL (6-20) 06/04/23 12:04 Creatinine 0.8 mg/dL (0.5-0.9) 06/04/23 12:04 GFR Calculation 80.7 mL/min (90-130) L 06/04/23 12:04 Glucose 100 mg/dL (65-115) 06/04/23 12:04 Calculated Osmolality 274 mOsm/kg (285-295) L 06/04/23 12:04 Calcium 9.5 mg/dL (8.5-10.5) 06/04/23 12:04 Total Bilirubin 0.4 mg/dL (0.15-1.2) 06/04/23 12:04 AST 30 U/L (0-32) 06/04/23 12:04 ALT 21 U/L (0-33) 06/04/23 12:04 Alkaline Phosphatase 135 U/L (35-105) H 06/04/23 12:04 Total Protein 7.4 g/dL (6.6-8.7) 06/04/23 12:04 Albumin 4.1 g/dL (3.5-5.2) 06/04/23 12:04 Globulin 3.3 g/dL (1.3-4.6) 06/04/23 12:04 Lipase 20 U/L (13-60) 06/04/23 12:04 HCG, Qual Negative (Negative) 06/04/23 12:04 Urine Color Yellow (Yellow) 06/04/23 13:23 Urine Appearance Sl hazy (CLEAR) A 06/04/23 13:23 Urine pH 7 (5-7) 06/04/23 13:23 Ur Specific [place] 1.010 (1.005-1.030) 06/04/23 13:23 Urine Protein Neg (Negative) 06/04/23 13:23 Urine Glucose (UA) Norm (Normal) 06/04/23 13:23 Urine Ketones 1+ (Negative) H 06/04/23 13:23 Urine Blood Neg (Negative) 06/04/23 13:23 Urine Nitrate Positive (Negative) H 06/04/23 13:23 Urine Bilirubin Neg (Negative) 06/04/23 13:23 Urine Urobilinogen Norm mg/dL (Negative) 06/04/23 13:23 Ur Leukocyte Esterase Negative (Negative) 06/04/23 13:23 Urine RBC 0-4 /hpf (0-2) H 06/04/23 13:23 Urine WBC 5-10 /hpf (0-5) H 06/04/23 13:23 Ur Squamous Epith Cells 0-4 /hpf (0-5) H 06/04/23 13:23 Amorphous Sediment Not Reportable 06/04/23 13:23 Urine Bacteria 4+ /hpf (NONE) H 06/04/23 13:23 Urine Mucus Trace /hpf 06/04/23 13:23 All radiology interpretation(s) finalized by discharge Discharge Plan Discharge Patient Disposition: Home Clinical Impression: Viral gastroenteritis, Cystitis Condition: Stable Prescriptions: New Macrobid 100 mg capsule 100 mg PO BID 7 Days Qty: 14 0RF Rx Instructions: must administer with a meal/food ondansetron HCl 4 mg tablet 4 mg PO Q6H PRN (Reason: nausea and vomiting) Qty: 20 0RF No Action metoprolol succinate 200 mg tablet extended release 24 hr 200 mg PO DAILY Phospha 250 Neutral 250 mg tablet 2 tab PO BID mycophenolate sodium 360 mg tablet,delayed release (DR/EC) 360 mg PO BID Multi For Her 18 mg iron-600 mcg-40 mcg Capsule 1 tab-cap PO DAILY tacrolimus 1 mg capsule 1 mg PO BID Kait 60 mg Tablet 60 mg PO DAILY ondansetron HCl 4 mg tablet 4 mg PO Q6H PRN (Reason: Nausea And Vomiting) prednisone 5 mg tablet 5 mg PO DAILY fluoxetine 10 mg capsule 10 mg PO DAILY estradiol 1 mg tablet 1 mg PO DAILY Vitamin D3 25 mcg (1,000 unit) Tablet 25 mcg PO DAILY Discharge Orders: Discharge ED (Routine); Ordered 06/04/23 Ordered By: Daniel Becker Referrals: Cecilia López MD [Primary Care Provider] - Discharge Diet: Clear Liquid Discharge Activity: Increase activity as tolerated Patient Instructions: Opioid Safety, Pain Management Activity Restrictions/Additional Instructions: You were seen today with gastrointestinal symptoms. CT did not show any acute abnormalities he did have a mild cystitis and slightly elevated white count. We did test you for coronavirus we will contact you with the results when it is available. You are given IV fluids and a dose of ceftriaxone in the emergency room start the oral antibiotic for the bladder infection tomorrow. Coding Level of Care Code ED Histopath Tech for Doris Anderson
[2023-06-04 12:11] LABS: Basophils # 0.1 10^3/uL (0.0-0.1); Basophils % 0.3 %; Eosinophils # 0.1 10^3/uL (0.0-0.8); Eosinophils % 0.7 %; Hematocrit 44.2 % (36-47); Lymphocytes # 0.6 10^3/uL (0.8-4.8); Lymphocytes % 3.7 %; Mean Corpuscular Hemoglobin 29.5 pg (27-33); Mean Corpuscular Volume 89.3 fl (85-98); Mean Platelet Volume 9.8 fL (7.4-10.4); Monocytes # 1.4 10^3/uL (0.2-0.9); Monocytes % 8.7 %; Neutrophils # 13.99 10^3/uL (1.8-7.7); Neutrophils % 85.8 %; Nucleated Red Blood Cells % 0 %; Platelet Count 267 10^3/cmm (157-399); Red Blood Count 4.95 10^6/uL (3.85-5.65); Red Cell Distribution Width 12.6 % (12.1-15.1)
[2023-06-04] MEDS: sodium chloride 0.9% 1,000 ML 999 ML IV ×3 (12:18→15:38)
[2023-06-04 12:28] LABS: HCG, Serum Qual Negative (Negative)
[2023-06-04 12:42] LABS: Alanine Aminotransferase 21 U/L (0-33); Albumin Level 4.1 g/dL (3.5-5.2); Alkaline Phosphatase 135 U/L (35-105); Blood Urea Nitrogen 13 mg/dL (6-20); Calcium 9.5 mg/dL (8.5-10.5); Carbon Dioxide 22 mmol/L (22-29); Chloride 98 mmol/L (98-107); Globulin 3.3 g/dL (1.3-4.6); Glomerular Filtration Rate 80.7 mL/min (90-130); Glucose 100 mg/dL (65-115); Lipase 20 U/L (13-60); Osmolality Calculated 274 mOsm/kg (285-295); Sodium 132 mmol/L (136-145); Total Bilirubin 0.4 mg/dL (0.15-1.2); Total Protein 7.4 g/dL (6.6-8.7)
[2023-06-04 12:44] LABS: Anion Gap 16.1 (5-19); Aspartate Amino Transferase 30 U/L (0-32); Potassium 4.1 mmol/L (3.5-5.1)
--- NOTE | 2023-06-04 13:39 | CT_ITS ---
WS: [id number] CT ABDOMEN AND PELVIS NONCONTRAST HISTORY: Abdominal pain TECHNIQUE: Imaging performed through the abdomen and pelvis. Coronal and sagittal reformats are submi tted. All CT scans at [facility] use at least one of these dose optimization techniques: auto mated exposure control; mA and/or kV adjustment per patient size (includes targeted exams where dose is matched to clinical indication); or iterative reconstruction. DLP: 377.83 mGy.cm COMPARISON: 09/09/2019 Lower thorax: Breathing motion artifact at the lung bases. No mass. Normal size heart. Liver: Moderately enlarged liver with low-attenuation from hepatic steatosis. The hepatic flexure con tacts the inferior surface of the RIGHT lobe of the liver. Gallbladder: Normal gallbladder. No pericholecystic fluid or cholelithiasis. No gallbladder wall thic [place]. Pancreas: Normal size and attenuation. Normal pancreatic duct. No pancreatitis or mass. Spleen: Normal. Adrenal glands: Normal. No mass. Right kidney: Surgically removed. Surgical sutures are noted at the renal bed. No identifiable RIGHT kidney. Left kidney: No identifiable LEFT kidney. There is a renal transplant in the RIGHT pelvis. No obstruction or perinephric stranding around the i mplant. Aorta: Normal abdominal aorta, no aneurysm or atherosclerosis. No free fluid, intraperitoneal air or significant lymphadenopathy. GI tract: Normal noncontrast imaging of the stomach, small bowel and colon. No obstruction or wall th ickening. Normal appendix. Abdominal wall: Negative. No hernia. Pelvis: No free fluid. Prior appendectomy. Prior hysterectomy. Osseous structures: No destructive bone changes. IMPRESSION: 1. Bilateral nephrectomies. 2. RIGHT transplanted pelvic kidney with no obstruction. 3. No GI tract obstruction. 4. Prior appendectomy and hysterectomy. 5. No free fluid or free air. 6. Hepatic steatosis. 7. No GI tract obstruction. No mucosal thickening or evidence for colitis at this time.
[2023-06-04 13:54] LABS: Add Urine Microscopic? YES; Bilirubin Urine Neg (Negative); Blood Urine Neg (Negative); Glucose Urine UA Norm (Normal); Ketones Urine 1+ (Negative); Leukocyte Esterase Urine Negative (Negative); Nitrate Urine Positive (Negative); Protein Urine Neg (Negative); Urine Appearance SL Hazy (CLEAR); Urine Color Yellow (Yellow); Urobilinogen Urine Norm (Negative); pH Urine 7 (5-7)
[2023-06-04 13:57] LABS: Add Urine Culture? Yes; Bacteria Urine 4+ /hpf; Mucus Urine TRACE /hpf; RBC Urine 0-4 /hpf (0-2); Squamous Epithelial Cell Urine 0-4 /hpf (0-5)
[2023-06-04 14:10] VITALS: BP 127/93; PULSE 117; O2SAT 98
[2023-06-04 15:00] VITALS: TEMP 39.1
[2023-06-04] MEDS: acetaminophen 500 mg Tablet 1000 MG PO (15:39)
[2023-06-04] MEDS: cefTRIAXone 1,000 MG in sodium chloride 0.9% (plus) 50 ML 100 MG IV (15:39)
[2023-06-04 16:00] VITALS: BP 125/81; PULSE 117; TEMP 37.5; O2SAT 97
[2023-06-04 16:42] VITALS: BP 112/67; PULSE 114; RESP 16; TEMP 36.9; O2SAT 95
[2023-06-04 18:26] LABS: Adenovirus Not Detected (NOT DETECT); Chlamydia Pneumoniae Not Detected (NOT DETECT); Coronavirus 229E,HKU1,NL63,OC4 Not Detected (NOT DETECT); Human Metapneumovirus Not Detected (NOT DETECT); Human Rhinovirus/Enterovirus Not Detected (NOT DETECT); Influenza A Not Detected (NOT DETECT); Influenza A H1 Not Detected (NOT DETECT); Influenza A H1-2009 Not Detected (NOT DETECT); Influenza A H3 Not Detected (NOT DETECT); Influenza B Not Detected (NOT DETECT); Mycoplasma Pneumoniae Not Detected (NOT DETECT); Parainfluenza Virus Type 1 Not Detected (NOT DETECT); Parainfluenza Virus Type 2 Not Detected (NOT DETECT); Parainfluenza Virus Type 3 Not Detected (NOT DETECT); Parainfluenza Virus Type 4 Not Detected (NOT DETECT); Respiratory Syncytial Virus A Not Detected (NOT DETECT); Respiratory Syncytial Virus B Not Detected (NOT DETECT)
[2023-06-04 18:41] LABS: SARS-COV-2 Detected (NOT DETECT)
== END 2023-06-04 16:43 | disposition home or self-care (01) ==
PROVIDERS: Emergency Provider Family Medicine; PCP Family Medicine
DX: A08.4 Viral intestinal infection, unspecified (principal); N30.90 Cystitis, unspecified without hematuria; Z87.891 Personal history of nicotine dependence; Z94.0 Kidney transplant status; I11.0 Hypertensive heart disease with heart failure; I50.9 Heart failure, unspecified; Z11.52 Encounter for screening for COVID-19; U07.1 COVID-19
CPT/HCPCS: 36415; 74176; 80053; 81001; 83690; 84703; 85025; 87040; 87077; 87086; 87186; 87635; 96361; 96374; 99285; J0696; J7030

== ENCOUNTER 2024-11-11 11:59 | Outpatient (CLI) | payer OTHER, SELFPAY ==
--- NOTE | 2024-11-11 12:40 | MM_ITS ---
WS: [id number] Bilateral screening 3D tomosynthesis digital mammogram, 11/11/2024 12:06 PM Clinical Data: Z12.31 - Encounter for screening mammogram for malignant ... Comparison: 10/25/2019, 09/24/2019, 03/31/2018, 06/14/2016. Findings: No spiculated masses or clustered calcifications are seen. There are no secondary signs of carcinoma. MM/MM scr BI tomosynthesis [id number] Impression: Negative bilateral mammogram unchanged. Recommend annual screening mammograms. BIRADS: 1 - Negative. FOLLOW UP: 1 Year Follow-up DENSITY: There are scattered areas of fibroglandular density. The CAD relay checker was used
== END 2024-11-11 12:00 | disposition home or self-care (01) ==
LOC: MOBLMAM 12:00
PROVIDERS: PCP Nurse Practitioner Women's Health; Visit Provider Nurse Practitioner Women's Health
DX: Z12.31 Encounter for screening mammogram for malignant neoplasm of breast (principal); R92.323 Mammographic fibroglandular density, bilateral breasts
CPT/HCPCS: 77063; 77067